=== PATIENT | male | born 1970 | race Caucasian/White ===

== ENCOUNTER 2017-01-24 12:48 | Emergency (ER) | payer OTHER ==
--- NOTE | 2017-01-24 13:11 | EDM.PDOC ---
ED HPI GENERAL MEDICAL PROBLEM - General Chief Complaint: Cardiovascular Problem Stated Complaint: [facility] Time Seen by Provider: 01/24/17 13:11 - History of Present Illness INITIAL COMMENTS - FREE TEXT/NARRATIVE: 46-year-old male presents emergency room with chest pain and a headache. He awoke with a headache around 4 AM he noticed some chest discomfort started around 6 AM this morning. Patient has a history of atherosclerotic cardiovascular disease he had stents placed last spring he is currently on Plavix and aspirin. The patient has been taking his medications as directly however some got crossed up in the mail and he's been off his lisinopril for about a week and he thinks this is causing his symptoms. The patient believes his headaches are due to this. He takes lisinopril 5 mg a day. The patient's chest discomfort is pretty much resolved and he is pain-free at this time but he is concerned about this Headache Pain Score (Numeric/FACES): 10 Chest Pain Score (Numeric/FACES): 1 - Related Data Allergies Allergy/AdvReac Type Severity Reaction Status Date / Time No Known Allergies Allergy Verified 01/24/17 12:56 Home Meds: Home Meds Clopidogrel Bisulfate [Clopidogrel] 75 mg PO DAILY 01/24/17 [History] Cyclobenzaprine HCl 10 mg PO TID PRN 01/24/17 [History] Lisinopril 5 mg PO DAILY 01/24/17 [History] Losartan [Cozaar] 50 mg PO DAILY 01/24/17 [History] Meloxicam 15 mg PO DAILY 01/24/17 [History] Nitroglycerin 0.4 mg PO ASDIRECTED PRN 01/24/17 [History] atorvaSTATin Calcium [Atorvastatin Calcium] 40 mg PO BEDTIME 01/24/17 [History] Past Medical History Cardiovascular History: Reports: CAD, High Cholesterol, Hypertension Gastrointestinal History: Reports: Other (See Below) Other Gastrointestinal History: laceration of colon Psychiatric History: Reports: Depression, PTSD - Past Surgical History Musculoskeletal Surgical History: Reports: Other (See Below) Other Musculoskeletal Surgeries/Procedures:: tendon repair Social & Family History - Tobacco Use Smoking Status *Q: Former Smoker Years of Tobacco use: 20 Used Tobacco, but Quit: Yes Month Tobacco Last Used: oct 2007 Second Hand Smoke Exposure: Yes - Alcohol Use Days Per Week of Alcohol Use: 0 - Recreational Drug Use Recreational Drug Use: No ED ROS GENERAL - Review of Systems Review Of Systems: See Below Constitutional: Reports: No Symptoms HEENT: Reports: No Symptoms Respiratory: Reports: No Symptoms Cardiovascular: Reports: Chest Pain, Blood Pressure Problem. Denies: No Symptoms GI/Abdominal: Reports: No Symptoms : Reports: No Symptoms Skin: Reports: No Symptoms Neurological: Reports: Headache. Denies: No Symptoms, Confusion, Dizziness, Seizure, Syncope, Tremors, Trouble Speaking, Difficulty Walking ED EXAM, GENERAL - Physical Exam Exam: See Below Exam Limited By: No Limitations General Appearance: Alert, No Apparent Distress Eye Exam: Bilateral Eye: Normal Inspection, PERRL Ears: Normal External Exam, Normal Canal, Hearing Grossly Normal, Normal TMs Nose: Normal Inspection, Normal Mucosa, No Blood Throat/Mouth: Normal Inspection, Normal Lips, Normal Gums, Normal Oropharynx, Normal Voice, No Airway Compromise Head: Atraumatic, Normocephalic Neck: Normal Inspection, Supple, Non-Tender, Full Range of Motion. No: Lymphadenopathy (L), Lymphadenopathy (R) Respiratory/Chest: No Respiratory Distress, Lungs Clear, Normal Breath Sounds Cardiovascular: Regular Rate, Rhythm, No Edema, No Murmur GI/Abdominal: Normal Bowel Sounds, Soft, Non-Tender Back Exam: Normal Inspection. No: CVA Tenderness (L), Paraspinal Tenderness Neurological: Alert, Oriented, Normal Cognition, Other (Cranial nerves II through XII grossly intact muscle groups the upper extremities recall appropriate bilaterally deep tendon reflexes the brachial radialis and patella tendons recall appropriate bilaterally patient has no difficulty with ambulation cerebellar testing is entirely within normal limits) Psychiatric: Normal Affect, Normal Mood Skin Exam: Warm, Dry, Intact EKG INTERPRETATION EKG Date: 01/24/17 Rhythm: NSR [place]: LAD-Left [place] Deviation P-Wave: Present QRS: Other (Interventricular conduction delay) ST-T: Other (Acute ST-T wave changes) QT: Normal Comparison: No Change EKG Interpretation Comments: Abnormal EKG no change from December 15, 2013 Course - Vital Signs Last Recorded V/S: Last Vital Signs Temp Pulse 64 01/24/17 12:51 Resp 18 01/24/17 12:51 BP 165/102 H 01/24/17 16:34 Pulse Ox 98 01/24/17 12:51 - Orders/Labs/Meds Orders: Active Orders 24 hr Category Date Time Status EKG 12 Lead [EKG Documentation Completion] [RC] STAT Care 01/24/17 12:57 Active EKG 12 Lead [EKG Documentation Completion] [RC] STAT Care 01/24/17 12:57 Inactive Labs: Laboratory Tests 01/24/17 01/24/17 01/24/17 Range/Units 13:36 13:36 13:36 WBC 4.32 (4.23-9.07) K/mm3 RBC 4.73 (4.63-6.08) M/mm3 Hgb 14.0 (13.7-17.5) gm/L Hct 39.9 L (40.1-51.0) % MCV 84.4 (79.0-92.2) fl MCH 29.6 (25.7-32.2) pg MCHC 35.1 (32.2-35.5) g/dl RDW Std Deviation 38.0 (35.1-43.9) fL Plt Count 223 (163-337) K/mm3 MPV 8.1 L (9.4-12.3) fl Neutrophils % (Manual) 68 H (40-60) % Band Neutrophils % 0 (0-10) % Lymphocytes % (Manual) 27 (20-40) % Atypical Lymphs % 0 % Monocytes % (Manual) 3 (2-10) % Eosinophils % (Manual) 2 (0.8-7.0) % Basophils % (Manual) 0 L (0.2-1.2) Platelet Estimate Adequate Plt Morphology Comment Normal RBC Morph Comment Normal PT 10.2 (8.0-13.0) SECONDS INR 0.94 APTT 25 (22-36) SECONDS Sodium 141 (136-145) mEq/L Potassium 3.7 (3.5-5.1) mEq/L Chloride 106 (98-107) mEq/L Carbon Dioxide 28 (21-32) mEq/L Anion Gap 10.7 (5-15) BUN 13 (7-18) mg/dL Creatinine 1.0 (0.7-1.3) mg/dL Est Cr Clr Drug Dosing 93.28 mL/min Estimated GFR (MDRD) > 60 (>60) mL/min BUN/Creatinine Ratio 13.0 L (14-18) Glucose 117 H (74-106) mg/dL Calcium 9.4 (8.5-10.1) mg/dL Total Bilirubin 0.5 (0.2-1.0) mg/dL AST 21 (15-37) U/L ALT 43 (16-63) U/L Alkaline Phosphatase 52 (46-116) U/L Troponin I < 0.017 (0.00-0.056) ng/mL Total Protein 7.6 (6.4-8.2) g/dl Albumin 4.2 (3.4-5.0) g/dl Globulin 3.4 gm/dL Albumin/Globulin Ratio 1.2 (1-2) 01/24/17 Range/Units 16:25 WBC (4.23-9.07) K/mm3 RBC (4.63-6.08) M/mm3 Hgb (13.7-17.5) gm/L Hct (40.1-51.0) % MCV (79.0-92.2) fl MCH (25.7-32.2) pg MCHC (32.2-35.5) g/dl RDW Std Deviation (35.1-43.9) fL Plt Count (163-337) K/mm3 MPV (9.4-12.3) fl Neutrophils % (Manual) (40-60) % Band Neutrophils % (0-10) % Lymphocytes % (Manual) (20-40) % Atypical Lymphs % % Monocytes % (Manual) (2-10) % Eosinophils % (Manual) (0.8-7.0) % Basophils % (Manual) (0.2-1.2) Platelet Estimate Plt Morphology Comment RBC Morph Comment PT (8.0-13.0) SECONDS INR APTT (22-36) SECONDS Sodium (136-145) mEq/L Potassium (3.5-5.1) mEq/L Chloride (98-107) mEq/L Carbon Dioxide (21-32) mEq/L Anion Gap (5-15) BUN (7-18) mg/dL Creatinine (0.7-1.3) mg/dL Est Cr Clr Drug Dosing mL/min Estimated GFR (MDRD) (>60) mL/min BUN/Creatinine Ratio (14-18) Glucose (74-106) mg/dL Calcium (8.5-10.1) mg/dL Total Bilirubin (0.2-1.0) mg/dL AST (15-37) U/L ALT (16-63) U/L Alkaline Phosphatase (46-116) U/L Troponin I < 0.017 (0.00-0.056) ng/mL Total Protein (6.4-8.2) g/dl Albumin (3.4-5.0) g/dl Globulin gm/dL Albumin/Globulin Ratio (1-2) Meds: Medications Discontinued Medications Generic Name Dose Route Start Last Admin Trade Name Merari PRN Reason Stop Dose Admin Lisinopril 5 mg 01/24/17 16:27 01/24/17 16:34 Prinivil PO 01/24/17 16:28 5 mg ONETIME ONE Administration - Re-Assessments/Exams Free Text/Narrative Re-Assessment/Exam: 01/24/17 17:39 Patient is been watched his second troponin done this was negative. He's been off his lisinopril for a little over a week he was given a dose here today he's declined any treatment for his headaches. Even discussed imaging for his headaches and this was declined by with his blood pressures albeit slightly elevated not high enough to really causing the headaches. 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 He'll continue his other medications that he states he has plenty of he has a new prescription of lisinopril at [place] that he can get tomorrow. Departure - Departure Time of Disposition: 17:41 Disposition: Home, Self-Care 01 Clinical Impression: Chest pain, Cephalgia, Hypertension Referrals: PCP,Not In Area [Primary Care Provider] - Forms: ED Department Discharge Additional Instructions: Return to the emergency room with any questions problems worsening symptoms. Follow-up with your automotive service management teacher in the next week or two. Continue your current medications. Be certain to get your lisinopril tomorrow. And take this as directed - My Orders Last 24 Hours: My Active Orders 01/24/17 12:57 EKG 12 Lead [EKG Documentation Completion] [RC] STAT EKG 12 Lead [EKG Documentation Completion] [RC] STAT - Assessment/Plan Last 24 Hours: My Active Orders 01/24/17 12:57 EKG 12 Lead [EKG Documentation Completion] [RC] STAT EKG 12 Lead [EKG Documentation Completion] [RC] STAT
--- NOTE | 2017-01-24 14:02 | CR ---
Chest: Portable view of the chest was obtained. Comparison: No prior chest x-ray. Heart size and mediastinum are within normal limits for portable technique. Lungs are felt to be clear. Bony structures are grossly intact. Minimal scoliosis is incidentally noted. Impression: 1. Nothing acute is appreciated on two-view chest x-ray. Diagnostic code #2
[2017-01-24] MEDS ORDERED: Lisinopril 5 MG Tab PO ONE (16:27)
[2017-01-24 16:35] VITALS: BP 165/102
== END 2017-01-24 17:56 | disposition home or self-care (01) ==
LOC: JD.ED 12:48
DX: R07.9 Chest pain, unspecified (principal); I10 Essential (primary) hypertension; I25.10 Atherosclerotic heart disease of native coronary artery without angina pectoris; E78.00 Pure hypercholesterolemia, unspecified; F32.9 Major depressive disorder, single episode, unspecified; Z87.891 Personal history of nicotine dependence; Z79.899 Other long term (current) drug therapy; Z79.02 Long term (current) use of antithrombotics/antiplatelets
CPT/HCPCS: 36415; 71010; 80053; 84484; 85025; 85610; 85730; 93005; 99285; A9270; 93010; 99283-25